=== PATIENT | female | born 1965 | race African-American/Black ===

== ENCOUNTER 2019-08-24 13:40 | Emergency (ER) | payer MEDICAID ==
[~2019-08-24] VITALS: Ht 157.5 cm; Wt 96.7 kg
[2019-08-24 14:18] VITALS: BP 134/71
[2019-08-24] MEDS: KETOROLAC TROMETH 60MG/2ML VIAL IM ONE ×2 (14:27→14:31)
== END 2019-08-24 15:00 | disposition home or self-care (01) ==
LOC: ER 13:40
DX: G43.909 Migraine, unspecified, not intractable, without status migrainosus (principal)
CPT/HCPCS: 82962; 99283; J1885

== ENCOUNTER 2021-07-13 06:56 | Emergency (ER) | payer MEDICAID ==
[~2021-07-13] VITALS: Ht 167.6 cm; Wt 99.8 kg
[2021-07-13 07:53] LABS: Basophils # (auto) 0 10 ^3/uL (0-0.2); Basophils % (auto) 0.5 % (0.0-2.0); Eosinophils # (auto) 0.3 10 ^3/uL (0-0.8); Eosinophils % (auto) 3.5 % (0.0-7.0); Hematocrit 40.6 % (36.0-46.0); Hemoglobin 13.6 g/dL (12.2-16.2); Lymphocytes # (auto) 2.4 10 ^3/uL (0.4-5.4); Lymphocytes % (auto) 29.7 % (10.0-50.0); Mean Corpuscular Hemoglobin 28.8 pg (28.0-32.0); Mean Corpuscular Hgb Conc. 33.5 g/dL (32.0-36.0); Monocytes # (auto) 0.4 10 ^3/uL (0-1.3); Monocytes % (auto) 5.5 % (0.0-12.0); Neutrophils # (auto) 4.8 10 ^3/uL (1.6-8.6); Neutrophils % (auto) 60.8 % (37.0-80.0); Nucleated Red Blood Cells % 0.1 %; Red Blood Cells 4.72 10^6/uL (4.0-5.20); Red Cell Distribution Width 15.3 % (11.8-14.3)
[2021-07-13 08:05] LABS: Albumin 3.3 g/dL (3.4-5.0); BUN/Creatinine Ratio 14.5; Calcium 8.8 mg/dL (8.5-10.1); Potassium 3.7 mmol/L (3.5-5.1)
[2021-07-13 08:09] LABS: Partial Thromboplastin Time 32.3 sec (23.6-33.0)
[2021-07-13 08:10] LABS: Bilirubin, Total 0.3 mg/dL (0.2-1.0); Total Protein 7.6 g/dL (6.4-8.2)
[2021-07-13] MEDS ORDERED: methylPREDNISolone SOD SUCC 125 MG/2 ML VL IM ONE (09:45)
[2021-07-13] MEDS ORDERED: AMOX600S PO (09:48)
[2021-07-13] MEDS ORDERED: IOHEXOL 350 MG/ML 100ML IJ ONE (10:12)
[2021-07-13] MEDS ORDERED: methylPREDNISolone SOD SUCC 125 MG/2 ML VL IV ONE (10:15)
[2021-07-13] MEDS ORDERED: cefTRIAXone 1GM/50ML D5W 50 ML IV ONE (10:30)
[2021-07-13 10:45] VITALS: BP 134/74
[2021-07-13] MEDS ORDERED: AMOX500T92 PO (11:50)
[2021-07-13] MEDS ORDERED: PRED1PAK9 PO (12:12)
== END 2021-07-13 12:13 | disposition home or self-care (01) ==
LOC: ER 06:56 → EDUNIT# 06:56 → EDBD 06:56 → ER 12:13
DX: J32.9 Chronic sinusitis, unspecified (principal); E44.1 Mild protein-calorie malnutrition; R79.1 Abnormal coagulation profile; F17.210 Nicotine dependence, cigarettes, uncomplicated; J45.909 Unspecified asthma, uncomplicated; Z68.35 Body mass index [BMI] 35.0-35.9, adult
CPT/HCPCS: 36415; 71045; 71275; 80053; 83880; 84484; 85025; 85379; 85610; 85730; 93005; 96365; 96375; 99285; J0696; J2930; Q9967